=== PATIENT | male | born 1940 | race Caucasian/White ===

== ENCOUNTER 2019-06-24 07:58 | Outpatient (CLI) | payer OTHER ==
[~2019-06-24 07:58] MED LIST: ASPI81TA45 PO; ATOR40TA78 PO; CLOP75TA PO; FLUO10CA7 PO; LABE200T6 PO; RAMI10CA59 PO; TERA10CA3 PO; UBID100C24 PO; Vitamin B12 PO; Vitamin D3 PO
== END 2019-06-24 23:59 | disposition home or self-care (01) ==
LOC: CVU 07:58
PROVIDERS: ATTEND Internal Medicine Cardiovascular Disease
DX: I35.0 Nonrheumatic aortic (valve) stenosis (principal); R06.02 Shortness of breath; I65.29 Occlusion and stenosis of unspecified carotid artery; F10.20 Alcohol dependence, uncomplicated; Z87.891 Personal history of nicotine dependence
CPT/HCPCS: 93306

== ENCOUNTER → 2020-05-25 | Outpatient (CLI) | payer OTHER ==
[~2020-05-25] MED LIST changes: +FLUO10CA14 PO; -FLUO10CA7 PO
== END | disposition home or self-care (01) ==
LOC: CVU 09:55
PROVIDERS: ATTEND Internal Medicine Cardiovascular Disease
DX: I05.1 Rheumatic mitral insufficiency (principal); I11.9 Hypertensive heart disease without heart failure; R06.02 Shortness of breath; I65.29 Occlusion and stenosis of unspecified carotid artery
CPT/HCPCS: 93306; 93356